=== PATIENT | female | born 1965 | race Caucasian/White ===

== ENCOUNTER → 2017-10-18 | Outpatient (CLI) | payer OTHER | END | disposition home or self-care (01) | LOC: PLD 08:04 → LAB SHORT 08:04 | DX: N93.8 Other specified abnormal uterine and vaginal bleeding (principal) | CPT/HCPCS: 88305 ==

== ENCOUNTER → 2017-10-18 | Outpatient (CLI) | payer OTHER ==
[2017-10-20 12:23] LABS: HPV Genotype 16 Not Detected (NOTDET); HPV Genotype 18 Not Detected (NOTDET)
[2017-11-07 09:48] LABS: HPV High Risk Other Not Detected (NOTDET)
== END | disposition home or self-care (01) ==
LOC: LAB 12:12
PROVIDERS: Obstetrics & Gynecology
DX: Z01.419 Encounter for gynecological examination (general) (routine) without abnormal findings (principal)
CPT/HCPCS: 87624; G0123

== ENCOUNTER → 2020-06-11 | Outpatient (CLI) | payer OTHER | END | disposition home or self-care (01) | LOC: LAB SHORT 13:04 → LAB EV 13:04 | DX: H81.12 Benign paroxysmal vertigo, left ear (principal) | CPT/HCPCS: 87077; 87086; 87186 ==

== ENCOUNTER 2021-08-12 09:52 | Day surgery (SDC) | payer OTHER ==
[~2021-08-12] VITALS: Ht 175.3 cm; Wt 160.2 kg
[~2021-08-12 09:52] MED LIST: EUTHYROX50 MCG PO
[2021-08-12] MEDS ORDERED: Norethindrone Ac5 MG PO (10:44)
--- NOTE | 2021-08-12 13:18 | NUR ---
Patient up to Ambulate independently. Gait steady.MODERATE BLEEDING NOTED. PT GIVEN WIPES AND PERIPAD. Discharge instructions reviewed with patient. Patient verbalizes understanding. Copy given to patient to take home.PT WILL BE Discharged via wheelchair to private car for ride home WITH . DENIES NAUSEA/PAIN. REPORTS SURGEON GAVE PAIN MEDICATION PREPROCEDURE AND ITS AT HOME.
== END 2021-08-12 13:30 | disposition home or self-care (01) ==
LOC: ORSCMMR 09:52 → ORD 11:15 → ORSCMMR 13:30
PROVIDERS: Obstetrics & Gynecology
PROC: 0UDB8ZX Extraction of Endometrium, Via Natural or Artificial Opening Endoscopic, Diagnostic (ICD-10-PCS; principal; 2021-08-12 11:15)
DX: N95.0 Postmenopausal bleeding (principal); N80.0 Endometriosis of uterus; N84.0 Polyp of corpus uteri; E03.9 Hypothyroidism, unspecified; E66.01 Morbid (severe) obesity due to excess calories; Z68.43 Body mass index [BMI] 50.0-59.9, adult; Z79.899 Other long term (current) drug therapy
CPT/HCPCS: J0690; J1100; J1885; J2405; J2704; J3010; J7120

== ENCOUNTER → 2024-10-26 | Outpatient (CLI) | payer OTHER ==
[~2024-10-26] MED LIST changes: +Norethindrone Ac5 MG PO
[2024-10-26 15:21] LABS: Albumin, Blood 3.8 g/dL (3.4-5.0); Bilirubin, Total 0.5 mg/dL (0.1-1.0); Bun/Creatinine Ratio 17.7 (12.0-20.0); Calcium, Blood 9.2 mg/dL (8.5-10.1); Creatinine, Blood 0.73 mg/dL (0.40-1.00); Globulin, Blood 3.8 g/dL (2.2-4.0); Thyroid Stimulating Hormone 2.01 uIU/mL (0.360-4.800); Total Protein, Blood 7.6 g/dL (6.4-8.2)
== END | disposition home or self-care (01) ==
LOC: LAB 12:41 → LAB SHORT 12:41
PROVIDERS: Nurse Practitioner Family
DX: E03.9 Hypothyroidism, unspecified (principal); R53.81 Other malaise
CPT/HCPCS: 80053; 84443